=== PATIENT | female | born 1965 | race African-American/Black ===

== ENCOUNTER 2019-07-24 10:53 | Emergency (ER) | payer OTHER ==
[2019-07-24 11:14] VITALS: BP 119/73; PULSE 82; TEMP 98.4; BMI 25.7
--- NOTE | 2019-07-24 11:42 | PDOC ---
History of Present Illness - General Chief Complaint: Puncture Wound Stated Complaint: R FOOT PAIN/STEPPED ON NAIL Time Seen by Provider: 07/24/19 11:41 History Source: Patient - History of Present Illness Initial Comments: 07/24/19 11:53 Chief complaint: Puncture wound Patient 54-year-old female with no significant medical problems who states that on the way to work today, wearing a rubber sole shoe, she stepped on a nail. Nail did not stay in her foot but she has now developed pain to the area. Patient's last tetanus was about 6 years ago but she's not quite sure. Patient did not take any pain medicine. She works in a medical facility, they clean the wound and dressed it. GENERAL/CONSTITUTIONAL: No fever, weakness. dizziness HEAD, EYES, EARS, NOSE AND THROAT: No change in vision. No ear pain or discharge. No sore throat. CARDIOVASCULAR: No chest pain RESPIRATORY: No shortness of breath or cough GASTROINTESTINAL: No pain, nausea, vomiting, diarrhea or constipation GENITOURINARY: No dysuria MUSCULOSKELETAL: No neck or back pain SKIN: No rash, + puncture NEUROLOGIC: No headache, vertigo, loss of consciousness, or loss of sensation. GENERAL: The patient is awake, alert, and fully oriented, in no acute distress. HEAD: Normal with no signs of trauma. EYES: Pupils equal, round and reactive to light, sclera anicteric, conjunctiva clear. ENT: pharynx: no erythema, no exudate, uvula midline NECK: supple CHEST: clear, nontender, rr EXTREMITIES: Right foot: Puncture wound to the plantar surface, distally, no erythema or signs of infection, neurovascular intact. Rest of extremities, normal range of motion, no edema. NEUROLOGICAL: Normal speech, no gross deficits SKIN: Warm, Dry 07/24/19 11:56 Past History - Past Medical History Allergies/Adverse Reactions: Allergies Allergy/AdvReac Type Severity Reaction Status Date / Time Penicillins Allergy Verified 07/24/19 10:59 Home Medications: Ambulatory Orders Ciprofloxacin HCl [Cipro] 500 mg PO BID #14 tablet 07/24/19 - Suicide/Smoking/Psychosocial Hx Smoking History: Never smoked Hx Alcohol Use: No Drug/Substance Use Hx: No *Physical Exam - Vital Signs Last Vital Signs Temp Pulse Resp BP Pulse Ox 98.4 F 82 18 119/73 100 07/24/19 10:55 07/24/19 10:55 07/24/19 10:55 07/24/19 10:55 07/24/19 10:55 Medical Decision Making - Medical Decision Making 07/24/19 11:56 54-year-old female with puncture wound through rubber soled shoe. Patient is in pain, we'll order Motrin, patient needs tetanus booster, we'll get x-ray to rule out foreign body or fracture and will start on Cipro given risk of pseudomonas foot xray negative Discussed issues, findings, results, applicable medications and treatments and follow-up. All these were understood and all questions were answered 07/24/19 13:10 *DC/Admit/Observation/Transfer Diagnosis at time of Disposition: Puncture wound of foot, right Qualifiers: Encounter type: initial encounter Qualified Code(s): S91.331A - Puncture wound without foreign body, right foot, initial encounter - Discharge Dispostion Disposition: HOME Condition at time of disposition: Stable - Prescriptions Prescriptions: Ciprofloxacin HCl [Cipro] 500 mg PO BID #14 tablet - Referrals Referrals: Rafael Richardson MD [Primary Care Provider] - - Patient Instructions Printed Discharge Instructions: DI for Puncture Wound Additional Instructions: Take the cipro every 12 hours for 7 days Clean with soap and water 2-3 times daily, apply bacitracin Have her reevaluated if redness, pus, fever or getting worse Followup with your doctor - Post Discharge Activity Forms/Work/School Notes: Back to Work
[2019-07-24] MEDS ORDERED: IBUPROFEN 600 MG TABLET (FP) PO ONE ×2 (11:48→12:50)
[2019-07-24] MEDS ORDERED: DIPHTH,PERTUSS(ACELL),TET 0.5 ML DISP.SYRIN IM ONE (11:49)
== END 2019-07-24 13:54 | disposition home or self-care (01) ==
LOC: JER 10:53
PROC: 3E0234Z Introduction of Serum, Toxoid and Vaccine into Muscle, Percutaneous Approach (ICD-10-PCS; principal; 2019-07-24)
DX: S91.331A Puncture wound without foreign body, right foot, initial encounter (principal); W45.0XXA Nail entering through skin, initial encounter; Y93.01 Activity, walking, marching and hiking; Y92.89 Other specified places as the place of occurrence of the external cause; Y99.8 Other external cause status
CPT/HCPCS: 73630-TC-RT-FY; 90471; 90715; 99281-25